=== PATIENT | male | born 1940 | race Hispanic/Latino ===

== ENCOUNTER 2017-11-08 17:27 | Inpatient (IN) | payer OTHER ==
[~2017-11-08] VITALS: Ht 165.1 cm; Wt 74.3 kg
[~2017-11-08 17:27] MED LIST: BENA10TA3 PO; CIPR-245 PO; PREG50 PO
[2017-11-08 17:52] LABS: BASOPHILS % (AUTO) 0.4 % (0.0-5.0); EOSINOPHILS % (AUTO) 0.1 % (0.0-8.0); HEMATOCRIT 34.6 % (42-54); LYMPHOCYTES % (AUTO) 6.2 % (21.0-51.0); MEAN CORPUSCULAR HEMOGLOBIN 32.9 pg (27.0-33.0); MEAN CORPUSCULAR HGB CONC 36.1 g/dL (32.0-36.0); MEAN CORPUSCULAR VOLUME 90.9 fL (79-99); MONOCYTES % (AUTO) 6.8 % (3.0-13.0); NEUTROPHILS % (AUTO) 86.5 % (40.0-77.0); NUCLEATED RED BLOOD CELLS 0.2 % (0.0-0.19); PLATELET COUNT (AUTO) 223 K/uL (130-400); RED BLOOD CELL COUNT(AUTO) 3.81 MIL/uL (4.50-6.20); RED CELL DISTRIBUTION WIDTH 13.5 % (11.0-15.5); WHITE BLOOD COUNT (AUTO) 9.8 K/uL (4.8-10.8)
[2017-11-08 18:05] LABS: ALBUMIN 2.6 g/dL (3.5-5.0); BILIRUBIN,TOTAL 1.4 mg/dL (0.2-1.0); CREATININE 1.2 mg/dL (0.5-1.5); TOTAL PROTEIN, SERUM 6.3 g/dL (6.0-8.3)
[2017-11-08 18:09] LABS: POTASSIUM 2.5 mmol/L (3.5-5.1)
[2017-11-08] MEDS ORDERED: SODIUM CHLORIDE 0.9% 1000ML 1,000 ML IV ONE (18:18)
[2017-11-08] MEDS ORDERED: POTASSIUM BICARB/CIT AC 25 MEQ TABLET.EFF ONE (18:32)
[2017-11-08] MEDS ORDERED: POTASSIUM CHLORIDE 20 MEQ ERTAB PO PRN ×2 (20:00→22:30)
[2017-11-08] MEDS ORDERED: DEXTROSE 5 %-0.45 % NACL 1,000 ML IV SCH (20:00)
[2017-11-08] MEDS ORDERED: POTASSIUM CHLORIDE 20MEQ/100ML 100 ML IV PRN (20:00)
[2017-11-08] MEDS ORDERED: LIDOCAINE HCL-MPF 1% 2ML VIAL IJ PRN (20:00)
[2017-11-08 20:10] VITALS: BP 121/58
[2017-11-08] MEDS ORDERED: POTASSIUM CHLORIDE 10% ELIXIR 20 MEQ/15 ML UDCUP PO PRN (22:30)
[2017-11-08] MEDS ORDERED: HYDRALAZINE HCL 20 MG/ML VIAL IV PRN (22:30)
[2017-11-08] MEDS ORDERED: ONDANSETRON HCL 4 MG/2 ML VIAL IV PRN (22:30)
[2017-11-08] MEDS ORDERED: ACETAMINOPHEN 325 MG TAB PO PRN ×2 (22:30)
[2017-11-08] MEDS ORDERED: DEXTROSE 5%-WATER 1,000 ML IV SCH (22:45)
[2017-11-08] MEDS ORDERED: DEXTROSE 5%-WATER 1,000 ML IV ONE (22:48)
[2017-11-08 22:54] LABS: APPEARANCE,URINE Clear (CLEAR); BILIRUBIN,URINE Negative (NEGATIVE); COLOR,URINE Dark Yellow (YELLOW); GLUCOSE, URINE (UA) Negative (NEGATIVE); KETONES,URINE Trace mg/dL (NEGATIVE); LEUKOCYTE ESTERASE ,URINE Trace (NEGATIVE); NITRATE,URINE Negative (NEGATIVE); OCCULT BLOOD,URINE Negative (NEGATIVE); PH,URINE 5.5 (5.0-8.0); PROTEIN,URINE Trace (NEGATIVE)
[2017-11-08 23:08] LABS: BACTERIA,URINE Rare /HPF (None Seen); RBC,URINE None Seen /HPF (0-1)
[2017-11-09] VITALS (7 sets, daily range): BP systolic 113–135; BP diastolic 56–70
[2017-11-09 00:35] LABS: POTASSIUM 2.9 mmol/L (3.5-5.1)
[2017-11-09 00:45] LABS: CREATINE KINASE MB 1.1 ng/mL (0.5-3.6); TROPONIN I 0.07 ng/mL (0.00-0.06)
[2017-11-09] MEDS: LIDOCAINE HCL-MPF 1% 2ML VIAL IVP PRN ×3 (01:36→17:28)
[2017-11-09] MEDS: POTASSIUM CHLORIDE 20MEQ/100ML 100 ML IV PRN ×4 (01:36→17:28)
[2017-11-09] MEDS ORDERED: MEGE400O20 PO (05:39)
[2017-11-09] MEDS ORDERED: TAMS0.4C32 PO (05:39)
[2017-11-09 06:27] LABS: HEMATOCRIT 32.2 % (42-54); MEAN CORPUSCULAR HEMOGLOBIN 32.4 pg (27.0-33.0); MEAN CORPUSCULAR HGB CONC 35.5 g/dL (32.0-36.0); MEAN CORPUSCULAR VOLUME 91.3 fL (79-99); NUCLEATED RED BLOOD CELLS 0.1 % (0.0-0.19); PLATELET COUNT (AUTO) 190 K/uL (130-400); RED BLOOD CELL COUNT(AUTO) 3.52 MIL/uL (4.50-6.20); RED CELL DISTRIBUTION WIDTH 13.7 % (11.0-15.5); WHITE BLOOD COUNT (AUTO) 8.3 K/uL (4.8-10.8)
[2017-11-09 06:49] LABS: CREATINE KINASE MB 0.8 ng/mL (0.5-3.6); CREATININE 1.1 mg/dL (0.5-1.5); TROPONIN I 0.06 ng/mL (0.00-0.06)
[2017-11-09] MEDS: TAMSULOSIN HCL 0.4 MG CAP.ER.24H PO SCH (09:56)
[2017-11-09] MEDS: FAMOTIDINE 20MG TAB 20 MG TAB PO SCH ×2 (09:56→21:27)
[2017-11-09] MEDS: PREGABALIN 25 MG CAP PO SCH ×2 (09:58→21:27)
[2017-11-09] MEDS: MEGESTROL 400 MG/10 ML UDCUP PO SCH (09:59)
[2017-11-09] MEDS: ENOXAPARIN SODIUM 40 MG/0.4 ML SYRINGE SQ SCH (10:00)
[2017-11-10] VITALS (7 sets, daily range): BP systolic 115–143; BP diastolic 57–72
[2017-11-10 06:13] LABS: HEMATOCRIT 33.1 % (42-54); MEAN CORPUSCULAR HEMOGLOBIN 33.6 pg (27.0-33.0); MEAN CORPUSCULAR HGB CONC 36.4 g/dL (32.0-36.0); MEAN CORPUSCULAR VOLUME 92.3 fL (79-99); NUCLEATED RED BLOOD CELLS 0.2 % (0.0-0.19); PLATELET COUNT (AUTO) 237 K/uL (130-400); RED BLOOD CELL COUNT(AUTO) 3.59 MIL/uL (4.50-6.20); RED CELL DISTRIBUTION WIDTH 13.9 % (11.0-15.5); WHITE BLOOD COUNT (AUTO) 9.4 K/uL (4.8-10.8)
[2017-11-10 06:26] LABS: CREATININE 1.3 mg/dL (0.5-1.5); MAGNESIUM 1.8 mg/dL (1.80-2.40); PHOSPHORUS 2.9 mg/dL (2.5-4.9)
[2017-11-10] MEDS ORDERED: CEFTRIAXONE 1GM/D5W 50ML 50 ML IV SCH (08:15)
[2017-11-10] MEDS ORDERED: CEFTRIAXONE SODIUM 1 GM IVP SCH (08:30)
[2017-11-10] MEDS: FAMOTIDINE 20MG TAB 20 MG TAB PO SCH ×2 (09:45→21:00)
[2017-11-10] MEDS: TAMSULOSIN HCL 0.4 MG CAP.ER.24H PO SCH (09:45)
[2017-11-10] MEDS: MEGESTROL 400 MG/10 ML UDCUP PO SCH (09:47)
[2017-11-10] MEDS: ENOXAPARIN SODIUM 40 MG/0.4 ML SYRINGE SQ SCH (09:50)
[2017-11-10] MEDS: PREGABALIN 25 MG CAP PO SCH ×2 (09:51→21:00)
[2017-11-10] MEDS: DEXTROSE 5%-LACTATED RINGERS 1,000 ML IV SCH (09:54)
[2017-11-10] MEDS: IPRATROPIUM/ALBUTEROL SULFATE 3 ML SOLUTION IH SCH ×3 (11:44→23:50)
[2017-11-10] MEDS ORDERED: MEROPENEM 1GM IVPB PREMIXED 1 GM IV SCH (12:30)
[2017-11-10] MEDS ORDERED: PAMIDRONATE DISODIUM 90MG VIAL 90 MG in SODIUM CHLORIDE 0.9% 1000ML 1,000 ML IV SCH (12:30)
[2017-11-10] MEDS ORDERED: MEROPENEM 1 GM VIAL IVP SCH (12:45)
[2017-11-10 13:57] LABS: ABG BASE EXCESS 6.1 mmol/L (-2.0-3.0); ABG HCO3 28.7 mmol/L (21.0-28.0); ABG OXYGEN SATURATION 90.9 % (95.0-99.0); ABG PCO2 34 mmHg (35-48)
[2017-11-10] MEDS: ACETAMINOPHEN 650 MG SUPPOSITORY RC PRN ×2 (16:10→21:32)
[2017-11-10 17:11] LABS: ABG BASE EXCESS 2.8 mmol/L (-2.0-3.0); ABG HCO3 24.4 mmol/L (21.0-28.0); ABG OXYGEN SATURATION 95.7 % (95.0-99.0); ABG PCO2 29 mmHg (35-48)
[2017-11-10] MEDS ORDERED: ASPIRIN 300 MG SUPPOSITORY PR SCH (19:30)
[2017-11-10] MEDS: MEROPENEM 1 GM VIAL IVP SCH (22:43)
[2017-11-11 03:39] VITALS: BP 123/60
[2017-11-11] MEDS: DEXTROSE 5%-LACTATED RINGERS 1,000 ML IV SCH ×2 (04:05→13:38)
[2017-11-11 04:06] LABS: HEMATOCRIT 31.8 % (42-54); MEAN CORPUSCULAR HEMOGLOBIN 32.7 pg (27.0-33.0); MEAN CORPUSCULAR HGB CONC 35.2 g/dL (32.0-36.0); NUCLEATED RED BLOOD CELLS 0.4 % (0.0-0.19); PLATELET COUNT (AUTO) 189 K/uL (130-400); RED BLOOD CELL COUNT(AUTO) 3.42 MIL/uL (4.50-6.20); RED CELL DISTRIBUTION WIDTH 14.1 % (11.0-15.5); WHITE BLOOD COUNT (AUTO) 4.7 K/uL (4.8-10.8)
[2017-11-11 04:16] LABS: ABG BASE EXCESS 7.2 mmol/L (-2.0-3.0); ABG OXYGEN SATURATION 96.6 % (95.0-99.0); ABG PCO2 36 mmHg (35-48)
[2017-11-11 04:17] LABS: ALBUMIN 2.1 g/dL (3.5-5.0); BILIRUBIN,TOTAL 1.5 mg/dL (0.2-1.0); CREATININE 1.5 mg/dL (0.5-1.5); POTASSIUM 3.8 mmol/L (3.5-5.1); TOTAL PROTEIN, SERUM 5.9 g/dL (6.0-8.3)
[2017-11-11] MEDS: IPRATROPIUM/ALBUTEROL SULFATE 3 ML SOLUTION IH SCH ×3 (06:12→18:14)
[2017-11-11] MEDS: MEROPENEM 1 GM VIAL IVP SCH ×3 (06:28→22:07)
[2017-11-11 07:31] VITALS: BP 148/64
[2017-11-11] MEDS: TAMSULOSIN HCL 0.4 MG CAP.ER.24H PO SCH (09:00)
[2017-11-11] MEDS: PREGABALIN 25 MG CAP PO SCH ×2 (09:00→21:00)
[2017-11-11] MEDS: MEGESTROL 400 MG/10 ML UDCUP PO SCH (09:00)
[2017-11-11] MEDS: FAMOTIDINE 20MG TAB 20 MG TAB PO SCH ×2 (09:00→21:00)
[2017-11-11 11:21] VITALS: BP 119/75
[2017-11-11] MEDS: ACETAMINOPHEN 650 MG SUPPOSITORY RC PRN (14:24)
[2017-11-11 16:16] VITALS: BP 116/63
[2017-11-11 19:01] VITALS: BP 121/62
[2017-11-11 23:17] VITALS: BP 117/60
[2017-11-12] MEDS: DEXTROSE 5%-LACTATED RINGERS 1,000 ML IV SCH (00:44)
[2017-11-12] MEDS: IPRATROPIUM/ALBUTEROL SULFATE 3 ML SOLUTION IH SCH ×4 (00:50→20:26)
[2017-11-12 03:33] VITALS: BP 120/61
[2017-11-12] MEDS: ACETAMINOPHEN 650 MG SUPPOSITORY RC PRN (04:09)
[2017-11-12 04:22] LABS: HEMATOCRIT 31.9 % (42-54); MEAN CORPUSCULAR HEMOGLOBIN 32.1 pg (27.0-33.0); MEAN CORPUSCULAR HGB CONC 34.2 g/dL (32.0-36.0); MEAN CORPUSCULAR VOLUME 93.9 fL (79-99); NUCLEATED RED BLOOD CELLS 0.1 % (0.0-0.19); PLATELET COUNT (AUTO) 198 K/uL (130-400); RED CELL DISTRIBUTION WIDTH 14.5 % (11.0-15.5); WHITE BLOOD COUNT (AUTO) 5.8 K/uL (4.8-10.8)
[2017-11-12 04:34] LABS: CREATININE 1.6 mg/dL (0.5-1.5); POTASSIUM 3.5 mmol/L (3.5-5.1)
[2017-11-12 04:55] VITALS: BP 113/66
[2017-11-12] MEDS: MEROPENEM 1 GM VIAL IVP SCH ×3 (06:53→21:43)
[2017-11-12 07:30] VITALS: BP 111/62
[2017-11-12] MEDS ORDERED: VANCOMYCIN PROTOCOL PER PHARMACY IV PRN (08:30)
[2017-11-12] MEDS: MEGESTROL 400 MG/10 ML UDCUP PO SCH (09:00)
[2017-11-12] MEDS ORDERED: FAMOTIDINE/PF 20 MG/2 ML VIAL IV SCH (09:00)
[2017-11-12] MEDS: TAMSULOSIN HCL 0.4 MG CAP.ER.24H PO SCH (09:00)
[2017-11-12] MEDS: PREGABALIN 25 MG CAP PO SCH ×2 (09:00→21:00)
[2017-11-12 11:00] VITALS: BP 99/54
[2017-11-12] MEDS: DEXTROSE 5%-WATER 1,000 ML IV SCH (11:05)
[2017-11-12] MEDS ORDERED: VANCOMYCIN 1.25 GM in SODIUM CHLORIDE 0.9% 250 ML IV ONE (14:00)
[2017-11-12 16:00] VITALS: BP 117/58
[2017-11-12] MEDS: KETOROLAC TROMETHAMINE 15MG/ML IV PRN (17:58)
[2017-11-12] MEDS: POTASSIUM CHLORIDE 20MEQ/100ML 100 ML IV PRN (17:59)
[2017-11-12] MEDS: LIDOCAINE HCL-MPF 1% 2ML VIAL IVP PRN (17:59)
[2017-11-12 20:00] VITALS: BP 109/64
[2017-11-13] VITALS (8 sets, daily range): BP systolic 80–119; BP diastolic 47–92
[2017-11-13] MEDS: IPRATROPIUM/ALBUTEROL SULFATE 3 ML SOLUTION IH SCH ×4 (00:29→18:52)
[2017-11-13] MEDS: VANCOMYCIN 500MG+NS 100ML 100 ML IV SCH ×2 (02:46→15:12)
[2017-11-13 05:12] LABS: HEMATOCRIT 30.4 % (42-54); MEAN CORPUSCULAR HEMOGLOBIN 32.4 pg (27.0-33.0); MEAN CORPUSCULAR HGB CONC 34.3 g/dL (32.0-36.0); MEAN CORPUSCULAR VOLUME 94.3 fL (79-99); NUCLEATED RED BLOOD CELLS 0.5 % (0.0-0.19); PLATELET COUNT (AUTO) 171 K/uL (130-400); RED BLOOD CELL COUNT(AUTO) 3.22 MIL/uL (4.50-6.20); WHITE BLOOD COUNT (AUTO) 6.2 K/uL (4.8-10.8)
[2017-11-13 05:35] LABS: CREATININE 1.6 mg/dL (0.5-1.5); POTASSIUM 3.5 mmol/L (3.5-5.1)
[2017-11-13] MEDS: TAMSULOSIN HCL 0.4 MG CAP.ER.24H PO SCH (06:56)
[2017-11-13] MEDS: MEGESTROL 400 MG/10 ML UDCUP PO SCH (06:57)
[2017-11-13] MEDS: PREGABALIN 25 MG CAP PO SCH ×2 (06:57→20:38)
[2017-11-13] MEDS: MEROPENEM 1 GM VIAL IVP SCH ×3 (07:12→21:19)
[2017-11-13] MEDS: DEXTROSE 5%-WATER 1,000 ML IV SCH ×2 (07:12→15:53)
[2017-11-13] MEDS: FAMOTIDINE/PF 20 MG/2 ML VIAL IV SCH (08:44)
[2017-11-13] MEDS: KETOROLAC TROMETHAMINE 15MG/ML IV PRN (12:16)
[2017-11-13 15:37] LABS: APPEARANCE,URINE Cloudy (CLEAR); BILIRUBIN,URINE Small (NEGATIVE); COLOR,URINE Dark Yellow (YELLOW); GLUCOSE, URINE (UA) Negative (NEGATIVE); KETONES,URINE Trace mg/dL (NEGATIVE); LEUKOCYTE ESTERASE ,URINE Small (NEGATIVE); NITRATE,URINE Negative (NEGATIVE); OCCULT BLOOD,URINE Large (NEGATIVE); PROTEIN,URINE POS 2+ (NEGATIVE)
[2017-11-13 15:50] LABS: BACTERIA,URINE Rare /HPF (None Seen); RBC,URINE Full Field /HPF (0-1); SQUAMOUS EPITHELIAL CELL,UR 0-2 /LPF (0-2)
[2017-11-13] MEDS ORDERED: SODIUM CHLORIDE 0.9% 1000ML 1,000 ML IV ONE ×2 (16:45→17:03)
[2017-11-13] MEDS: INSULIN HUMULIN R 100 UNIT/ML 3ML SQ SCH (20:38)
[2017-11-14] VITALS (21 sets, daily range): BP systolic 88–130; BP diastolic 42–84
[2017-11-14] MEDS: IPRATROPIUM/ALBUTEROL SULFATE 3 ML SOLUTION IH SCH ×5 (00:12→19:14)
[2017-11-14] MEDS: DEXTROSE 5%-WATER 1,000 ML IV SCH ×3 (00:20→21:27)
[2017-11-14] MEDS: VANCOMYCIN 500MG+NS 100ML 100 ML IV SCH ×2 (02:10→13:17)
[2017-11-14 04:09] LABS: HEMATOCRIT 29.3 % (42-54); MEAN CORPUSCULAR HEMOGLOBIN 31.9 pg (27.0-33.0); MEAN CORPUSCULAR VOLUME 93.9 fL (79-99); NUCLEATED RED BLOOD CELLS 0.3 % (0.0-0.19); PLATELET COUNT (AUTO) 151 K/uL (130-400); RED BLOOD CELL COUNT(AUTO) 3.12 MIL/uL (4.50-6.20); RED CELL DISTRIBUTION WIDTH 14.1 % (11.0-15.5); WHITE BLOOD COUNT (AUTO) 7.4 K/uL (4.8-10.8)
[2017-11-14 04:17] LABS: INR 1.02 (0.85-1.15); PARTIAL THROMBOPLASTIN TIME 23.8 SEC (26.3-35.5); PROTHROMBIN TIME 10.7 SEC (9.6-11.6)
[2017-11-14 04:20] LABS: CREATININE 1.7 mg/dL (0.5-1.5); POTASSIUM 3.4 mmol/L (3.5-5.1)
[2017-11-14] MEDS: MEROPENEM 1 GM VIAL IVP SCH ×3 (05:13→21:26)
[2017-11-14] MEDS: POTASSIUM CHLORIDE 20MEQ/100ML 100 ML IV PRN (05:44)
[2017-11-14] MEDS: LIDOCAINE HCL-MPF 1% 2ML VIAL IVP PRN (05:44)
[2017-11-14] MEDS: INSULIN HUMULIN R 100 UNIT/ML 3ML SQ SCH ×4 (06:12→21:00)
[2017-11-14] MEDS: FAMOTIDINE/PF 20 MG/2 ML VIAL IV SCH (09:00)
[2017-11-14] MEDS: MEGESTROL 400 MG/10 ML UDCUP PO SCH (09:00)
[2017-11-14] MEDS: TAMSULOSIN HCL 0.4 MG CAP.ER.24H PO SCH (09:00)
[2017-11-14] MEDS: PREGABALIN 25 MG CAP PO SCH ×2 (09:00→21:10)
[2017-11-14] MEDS ORDERED: PROPOFOL 10 MG/ML 20ML VIAL IV ONE ×2 (10:40)
[2017-11-14] MEDS: KETOROLAC TROMETHAMINE 15MG/ML IV PRN (17:16)
[2017-11-14] MEDS: VANCOMYCIN 1GM+NS 250ML 250 ML IV SCH (18:59)
[2017-11-15] MEDS: IPRATROPIUM/ALBUTEROL SULFATE 3 ML SOLUTION IH SCH ×4 (00:02→23:08)
[2017-11-15 03:53] VITALS: BP 119/66
[2017-11-15 04:27] LABS: HEMATOCRIT 26.5 % (42-54); MEAN CORPUSCULAR HEMOGLOBIN 32.9 pg (27.0-33.0); MEAN CORPUSCULAR HGB CONC 35.2 g/dL (32.0-36.0); MEAN CORPUSCULAR VOLUME 93.2 fL (79-99); NUCLEATED RED BLOOD CELLS 0.3 % (0.0-0.19); PLATELET COUNT (AUTO) 129 K/uL (130-400); RED BLOOD CELL COUNT(AUTO) 2.84 MIL/uL (4.50-6.20); RED CELL DISTRIBUTION WIDTH 14.3 % (11.0-15.5); WHITE BLOOD COUNT (AUTO) 5.5 K/uL (4.8-10.8)
[2017-11-15 04:53] LABS: CREATININE 1.4 mg/dL (0.5-1.5); POTASSIUM 3.4 mmol/L (3.5-5.1)
[2017-11-15] MEDS: MEROPENEM 1 GM VIAL IVP SCH ×3 (06:35→21:14)
[2017-11-15] MEDS: DEXTROSE 5%-WATER 1,000 ML IV SCH ×2 (06:35→16:48)
[2017-11-15] MEDS: INSULIN HUMULIN R 100 UNIT/ML 3ML SQ SCH ×3 (06:36→20:33)
[2017-11-15 08:00] VITALS: BP 148/71
[2017-11-15] MEDS: TAMSULOSIN HCL 0.4 MG CAP.ER.24H PO SCH (09:00)
[2017-11-15] MEDS: FAMOTIDINE/PF 20 MG/2 ML VIAL IV SCH (09:00)
[2017-11-15] MEDS: MEGESTROL 400 MG/10 ML UDCUP PO SCH (09:00)
[2017-11-15] MEDS: PREGABALIN 25 MG CAP PO SCH ×2 (09:00→20:31)
[2017-11-15] MEDS ORDERED: ENOXAPARIN SODIUM 40 MG/0.4 ML SYRINGE SQ ONE (14:53)
[2017-11-15] MEDS: ENOXAPARIN SODIUM 40 MG/0.4 ML SYRINGE SQ SCH (14:55)
[2017-11-15] MEDS: POTASSIUM CHLORIDE 10% ELIXIR 20 MEQ/15 ML UDCUP PO PRN ×2 (16:19→20:32)
[2017-11-15] MEDS: KETOROLAC TROMETHAMINE 15MG/ML IV PRN (16:47)
[2017-11-15] MEDS: VANCOMYCIN 1GM+NS 250ML 250 ML IV SCH (16:47)
[2017-11-15 19:00] VITALS: BP 114/55
[2017-11-15 23:56] VITALS: BP 116/51
[2017-11-16] MEDS: DEXTROSE 5%-WATER 1,000 ML IV SCH ×3 (02:20→23:01)
[2017-11-16 04:00] VITALS: BP 122/62
[2017-11-16] MEDS: MEROPENEM 1 GM VIAL IVP SCH ×3 (05:27→22:59)
[2017-11-16 05:51] LABS: MEAN CORPUSCULAR HEMOGLOBIN 33.7 pg (27.0-33.0); MEAN CORPUSCULAR HGB CONC 35.9 g/dL (32.0-36.0); MEAN CORPUSCULAR VOLUME 93.8 fL (79-99); NUCLEATED RED BLOOD CELLS 0.3 % (0.0-0.19); PLATELET COUNT (AUTO) 135 K/uL (130-400); RED BLOOD CELL COUNT(AUTO) 2.88 MIL/uL (4.50-6.20); RED CELL DISTRIBUTION WIDTH 14.3 % (11.0-15.5); WHITE BLOOD COUNT (AUTO) 5.5 K/uL (4.8-10.8)
[2017-11-16 05:59] LABS: BAND NEUTROPHILS % (MANUAL) 8 % (0-2); LYMPHOCYTES % (MANUAL) 17 % (22-44); MAN.DIFF COMMENT-IMPRESSION MANUAL DIFFERENTIAL; MONOCYTES % (MANUAL) 5 % (2-9); PLATELET MORPHOLOGY COMMENT SLIGHTLY DECREASED; SEGMENTED NEUTROPHILS % 70 % (40-70)
[2017-11-16 06:09] LABS: ALBUMIN 1.8 g/dL (3.5-5.0); BILIRUBIN,TOTAL 0.7 mg/dL (0.2-1.0); CREATININE 1.4 mg/dL (0.5-1.5); MAGNESIUM 1.7 mg/dL (1.80-2.40); POTASSIUM 3.7 mmol/L (3.5-5.1); TOTAL PROTEIN, SERUM 5.1 g/dL (6.0-8.3)
[2017-11-16] MEDS: INSULIN HUMULIN R 100 UNIT/ML 3ML SQ SCH ×4 (06:31→20:50)
[2017-11-16] MEDS: IPRATROPIUM/ALBUTEROL SULFATE 3 ML SOLUTION IH SCH ×4 (07:04→23:00)
[2017-11-16 08:00] VITALS: BP 122/60
[2017-11-16] MEDS: MEGESTROL 400 MG/10 ML UDCUP PO SCH (09:00)
[2017-11-16] MEDS: FAMOTIDINE/PF 20 MG/2 ML VIAL IV SCH (10:08)
[2017-11-16] MEDS: TAMSULOSIN HCL 0.4 MG CAP.ER.24H PO SCH (10:08)
[2017-11-16] MEDS: PREGABALIN 25 MG CAP PO SCH ×2 (10:08→22:58)
[2017-11-16 12:00] VITALS: BP 134/72
[2017-11-16 16:00] VITALS: BP 136/70
[2017-11-16] MEDS ORDERED: DIATR MEGLU/DIATRIZOATE SODIUM 30 ML BOTTLE PO ONE (16:24)
[2017-11-16] MEDS: VANCOMYCIN 1GM+NS 250ML 250 ML IV SCH (18:00)
[2017-11-16 19:00] VITALS: BP 132/72
[2017-11-16] MEDS: VANCOMYCIN 0.75 GM in N.S. 250 ML IV SCH (23:02)
[2017-11-17] VITALS (7 sets, daily range): BP systolic 104–136; BP diastolic 60–68
[2017-11-17] MEDS: MEROPENEM 1 GM VIAL IVP SCH ×3 (06:04→22:20)
[2017-11-17] MEDS: INSULIN HUMULIN R 100 UNIT/ML 3ML SQ SCH ×3 (06:35→21:00)
[2017-11-17] MEDS: IPRATROPIUM/ALBUTEROL SULFATE 3 ML SOLUTION IH SCH ×4 (06:55→23:38)
[2017-11-17] MEDS: ENOXAPARIN SODIUM 40 MG/0.4 ML SYRINGE SQ SCH (09:00)
[2017-11-17] MEDS: FUROSEMIDE 10 MG/ML 2ML VIAL IV SCH ×2 (09:25→22:08)
[2017-11-17] MEDS: PREGABALIN 25 MG CAP PO SCH ×2 (11:42→22:10)
[2017-11-17] MEDS: MEGESTROL 400 MG/10 ML UDCUP PO SCH (11:42)
[2017-11-17] MEDS: FAMOTIDINE/PF 20 MG/2 ML VIAL IV SCH (11:42)
[2017-11-17] MEDS: TAMSULOSIN HCL 0.4 MG CAP.ER.24H PO SCH (11:42)
[2017-11-17] MEDS ORDERED: COMPOUND IV REFRIGERATED 1 EACH IVSOLN MISC PRN (12:30)
[2017-11-17] MEDS: VANCOMYCIN 0.75 GM in N.S. 250 ML IV SCH (22:40)
[2017-11-18 03:57] VITALS: BP 102/54
[2017-11-18 04:10] LABS: MEAN CORPUSCULAR HEMOGLOBIN 33.4 pg (27.0-33.0); MEAN CORPUSCULAR HGB CONC 36.1 g/dL (32.0-36.0); MEAN CORPUSCULAR VOLUME 92.6 fL (79-99); NUCLEATED RED BLOOD CELLS 0.2 % (0.0-0.19); PLATELET COUNT (AUTO) 140 K/uL (130-400); RED BLOOD CELL COUNT(AUTO) 2.71 MIL/uL (4.50-6.20); RED CELL DISTRIBUTION WIDTH 14.4 % (11.0-15.5); WHITE BLOOD COUNT (AUTO) 6.8 K/uL (4.8-10.8)
[2017-11-18 04:24] LABS: CREATININE 1.8 mg/dL (0.5-1.5); MAGNESIUM 1.9 mg/dL (1.80-2.40); PHOSPHORUS 3.9 mg/dL (2.5-4.9); POTASSIUM 4.3 mmol/L (3.5-5.1)
[2017-11-18] MEDS: MEROPENEM 1 GM VIAL IVP SCH (05:52)
[2017-11-18] MEDS: INSULIN HUMULIN R 100 UNIT/ML 3ML SQ SCH ×4 (06:00→18:50)
[2017-11-18] MEDS: IPRATROPIUM/ALBUTEROL SULFATE 3 ML SOLUTION IH SCH ×4 (07:00→23:46)
[2017-11-18 08:00] VITALS: BP 109/55
[2017-11-18] MEDS: TAMSULOSIN HCL 0.4 MG CAP.ER.24H PO SCH (09:36)
[2017-11-18] MEDS: MEGESTROL 400 MG/10 ML UDCUP PO SCH (09:36)
[2017-11-18] MEDS: PREGABALIN 25 MG CAP PO SCH ×2 (09:36→21:10)
[2017-11-18] MEDS: FAMOTIDINE/PF 20 MG/2 ML VIAL IV SCH (09:36)
[2017-11-18 11:54] VITALS: BP 122/61
[2017-11-18] MEDS: POLYETHYLENE GLYCOL 3350 17 GM POWD.PACK PO SCH (12:54)
[2017-11-18] MEDS: DOXYCYCLINE HYCLATE 100 MG TABLET PO SCH ×2 (12:54→21:10)
[2017-11-18 16:00] VITALS: BP 126/60
[2017-11-18 20:00] VITALS: BP 90/49
[2017-11-19] VITALS (8 sets, daily range): BP systolic 87–100; BP diastolic 44–56
[2017-11-19] MEDS: IPRATROPIUM/ALBUTEROL SULFATE 3 ML SOLUTION IH SCH ×3 (07:12→17:27)
[2017-11-19 09:24] LABS: CREATININE 2.2 mg/dL (0.5-1.5); POTASSIUM 4.5 mmol/L (3.5-5.1)
[2017-11-19] MEDS: POLYETHYLENE GLYCOL 3350 17 GM POWD.PACK PO SCH (09:30)
[2017-11-19] MEDS: TAMSULOSIN HCL 0.4 MG CAP.ER.24H PO SCH (09:31)
[2017-11-19] MEDS: PREGABALIN 25 MG CAP PO SCH ×2 (09:31→21:57)
[2017-11-19] MEDS: DOXYCYCLINE HYCLATE 100 MG TABLET PO SCH ×2 (09:31→21:57)
[2017-11-19] MEDS: LEVOFLOXACIN 500 MG TABLET PO SCH (09:31)
[2017-11-19] MEDS: INSULIN HUMULIN R 100 UNIT/ML 3ML SQ SCH ×3 (12:47→19:18)
[2017-11-19] MEDS: SODIUM CHLORIDE 0.9% 1000ML 1,000 ML IV SCH (18:56)
[2017-11-20] MEDS: IPRATROPIUM/ALBUTEROL SULFATE 3 ML SOLUTION IH SCH ×5 (00:02→23:09)
[2017-11-20] MEDS: INSULIN HUMULIN R 100 UNIT/ML 3ML SQ SCH ×3 (00:57→12:29)
[2017-11-20 04:00] VITALS: BP 95/52
[2017-11-20 05:15] LABS: CREATININE 2.6 mg/dL (0.5-1.5); POTASSIUM 4.5 mmol/L (3.5-5.1)
[2017-11-20 07:20] VITALS: BP 114/58
[2017-11-20] MEDS ORDERED: LACTULOSE 20 GM/30 ML UDCUP PO PRN (09:00)
[2017-11-20] MEDS ORDERED: ONDANSETRON HCL 4 MG/2 ML VIAL IV PRN (09:00)
[2017-11-20] MEDS ORDERED: NITROGLYCERIN 0.4 MG SL TAB SL PRN (09:00)
[2017-11-20] MEDS ORDERED: ACETAMINOPHEN 325 MG TAB PO PRN ×2 (09:00)
[2017-11-20] MEDS ORDERED: MAG HYDROX/AL HYDROX/SIMETH ES 30 ML SUSP UDCUP PO PRN (09:00)
[2017-11-20] MEDS: TAMSULOSIN HCL 0.4 MG CAP.ER.24H PO SCH (09:00)
[2017-11-20] MEDS ORDERED: GUAIFENESIN-DM 200/20 MG 10 ML PO PRN (09:00)
[2017-11-20 10:02] LABS: APPEARANCE,URINE Cloudy (CLEAR); BILIRUBIN,URINE Small (NEGATIVE); COLOR,URINE Dark Yellow (YELLOW); GLUCOSE, URINE (UA) Negative (NEGATIVE); KETONES,URINE Negative (NEGATIVE); LEUKOCYTE ESTERASE ,URINE Trace (NEGATIVE); NITRATE,URINE Negative (NEGATIVE); OCCULT BLOOD,URINE Moderate (NEGATIVE); PROTEIN,URINE POS 2+ (NEGATIVE)
[2017-11-20 10:06] LABS: AMORPHOUS SEDIMENT,UR Moderate /LPF (None Seen); BACTERIA,URINE Rare /HPF (None Seen); RBC,URINE None Seen /HPF (0-1); SQUAMOUS EPITHELIAL CELL,UR Rare /LPF (0-2); WBC,URINE 0-1 /HPF (0-1)
[2017-11-20] MEDS: SODIUM CHLORIDE 0.9% 1000ML 1,000 ML IV SCH ×2 (10:06→22:02)
[2017-11-20] MEDS: PREGABALIN 25 MG CAP PO SCH ×2 (10:21→22:01)
[2017-11-20] MEDS: LEVOFLOXACIN 500 MG TABLET PO SCH (10:21)
[2017-11-20] MEDS: DOXYCYCLINE HYCLATE 100 MG TABLET PO SCH ×2 (10:22→22:01)
[2017-11-20] MEDS: POLYETHYLENE GLYCOL 3350 17 GM POWD.PACK PO SCH (10:22)
[2017-11-20] MEDS: ENOXAPARIN SODIUM 30 MG/0.3 ML SQ SCH (10:24)
[2017-11-20 11:48] VITALS: BP 100/55
[2017-11-20 15:36] VITALS: BP 103/59
[2017-11-20 20:00] VITALS: BP 95/47
[2017-11-21] VITALS (7 sets, daily range): BP systolic 95–110; BP diastolic 51–59
[2017-11-21] MEDS: INSULIN HUMULIN R 100 UNIT/ML 3ML SQ SCH ×3 (00:43→13:21)
[2017-11-21 04:36] LABS: CREATININE 2.8 mg/dL (0.5-1.5); POTASSIUM 4.3 mmol/L (3.5-5.1)
[2017-11-21] MEDS: ACETAMINOPHEN-CODEINE 300/30MG TAB PO PRN (04:39)
[2017-11-21] MEDS: IPRATROPIUM/ALBUTEROL SULFATE 3 ML SOLUTION IH SCH ×4 (06:43→23:27)
[2017-11-21] MEDS: PREGABALIN 25 MG CAP PO SCH ×2 (08:25→21:17)
[2017-11-21] MEDS: POLYETHYLENE GLYCOL 3350 17 GM POWD.PACK PO SCH (08:26)
[2017-11-21] MEDS: DOXYCYCLINE HYCLATE 100 MG TABLET PO SCH ×2 (08:26→21:17)
[2017-11-21] MEDS: LEVOFLOXACIN 500 MG TABLET PO SCH (08:26)
[2017-11-21] MEDS: ENOXAPARIN SODIUM 30 MG/0.3 ML SQ SCH (08:26)
[2017-11-21] MEDS: TAMSULOSIN HCL 0.4 MG CAP.ER.24H PO SCH (08:26)
[2017-11-21] MEDS ORDERED: MAGNESIUM CITRATE 296 ML SOLUTION PO PRN (09:45)
[2017-11-21] MEDS: ACETYLCYSTEINE 20% 200MG/ML 4ML VIAL IH SCH ×2 (18:47→23:27)
[2017-11-22] MEDS: INSULIN HUMULIN R 100 UNIT/ML 3ML SQ SCH ×6 (00:42→23:47)
[2017-11-22] MEDS: MORPHINE SULFATE 2 MG/ML 1ML SYG IV PRN ×3 (02:30→17:27)
[2017-11-22 03:34] VITALS: BP 97/41
[2017-11-22 04:54] LABS: CREATININE 3.1 mg/dL (0.5-1.5); POTASSIUM 4.4 mmol/L (3.5-5.1)
[2017-11-22 04:55] LABS: INR 0.98 (0.85-1.15); PARTIAL THROMBOPLASTIN TIME 32.9 SEC (26.3-35.5); PROTHROMBIN TIME 10.3 SEC (9.6-11.6)
[2017-11-22] MEDS: ACETYLCYSTEINE 20% 200MG/ML 4ML VIAL IH SCH (06:17)
[2017-11-22] MEDS: IPRATROPIUM/ALBUTEROL SULFATE 3 ML SOLUTION IH SCH ×4 (06:17→23:23)
[2017-11-22 07:00] VITALS: BP 111/62
[2017-11-22] MEDS ORDERED: SODIUM CHLORIDE 0.9% 1000ML 1,000 ML IV SCH (08:49)
[2017-11-22] MEDS: ENOXAPARIN SODIUM 30 MG/0.3 ML SQ SCH (09:00)
[2017-11-22] MEDS: TAMSULOSIN HCL 0.4 MG CAP.ER.24H PO SCH (09:00)
[2017-11-22] MEDS: POLYETHYLENE GLYCOL 3350 17 GM POWD.PACK PO SCH (09:00)
[2017-11-22] MEDS: PREGABALIN 25 MG CAP PO SCH ×2 (09:00→21:54)
[2017-11-22] MEDS ORDERED: HYDROMORPHONE HCL 0.5 MG/0.5 ML ML IVP PRN (09:30)
[2017-11-22] MEDS ORDERED: FUROSEMIDE 10 MG/ML 4ML VIAL IV SCH (10:00)
[2017-11-22] MEDS: DOXYCYCLINE 100MG+NS 250ML 250 ML IV SCH ×2 (10:17→21:54)
[2017-11-22] MEDS: LEVOFLOXACIN 250 MG/D5W 50ML 50 ML IV SCH (10:17)
[2017-11-22 11:00] VITALS: BP 97/54
[2017-11-22 16:00] VITALS: BP 109/55
[2017-11-22 19:34] VITALS: BP 93/52
[2017-11-22 23:44] VITALS: BP 95/53
[2017-11-23 03:44] VITALS: BP 96/61
[2017-11-23] MEDS: IPRATROPIUM/ALBUTEROL SULFATE 3 ML SOLUTION IH SCH ×3 (06:18→16:36)
[2017-11-23 06:26] LABS: HEMATOCRIT 23.7 % (42-54); MEAN CORPUSCULAR HEMOGLOBIN 32.3 pg (27.0-33.0); MEAN CORPUSCULAR HGB CONC 34.3 g/dL (32.0-36.0); MEAN CORPUSCULAR VOLUME 94.2 fL (79-99); NUCLEATED RED BLOOD CELLS 0.5 % (0.0-0.19); PLATELET COUNT (AUTO) 131 K/uL (130-400); RED BLOOD CELL COUNT(AUTO) 2.52 MIL/uL (4.50-6.20); RED CELL DISTRIBUTION WIDTH 15.6 % (11.0-15.5); WHITE BLOOD COUNT (AUTO) 3.8 K/uL (4.8-10.8)
[2017-11-23] MEDS: INSULIN HUMULIN R 100 UNIT/ML 3ML SQ SCH ×4 (06:28→21:32)
[2017-11-23 06:32] LABS: CREATININE 3.1 mg/dL (0.5-1.5)
[2017-11-23 08:00] VITALS: BP 102/57
[2017-11-23] MEDS ORDERED: MORPHINE SULFATE 4 MG/1ML SYG ONE ×2 (08:52→15:58)
[2017-11-23] MEDS: DOXYCYCLINE 100MG+NS 250ML 250 ML IV SCH ×2 (08:55→21:31)
[2017-11-23] MEDS: TAMSULOSIN HCL 0.4 MG CAP.ER.24H PO SCH (08:55)
[2017-11-23] MEDS: LEVOFLOXACIN 250 MG/D5W 50ML 50 ML IV SCH (08:55)
[2017-11-23] MEDS: PREGABALIN 25 MG CAP PO SCH ×2 (08:55→21:31)
[2017-11-23] MEDS: POLYETHYLENE GLYCOL 3350 17 GM POWD.PACK PO SCH (08:56)
[2017-11-23] MEDS: ENOXAPARIN SODIUM 30 MG/0.3 ML SQ SCH (08:56)
[2017-11-23 11:56] VITALS: BP 101/64
[2017-11-23 16:00] VITALS: BP 118/64
[2017-11-23 19:38] VITALS: BP 103/58
[2017-11-23 23:55] VITALS: BP 119/74
[2017-11-24] VITALS (15 sets, daily range): BP systolic 89–110; BP diastolic 47–70
[2017-11-24] MEDS: IPRATROPIUM/ALBUTEROL SULFATE 3 ML SOLUTION IH SCH ×5 (01:57→23:41)
[2017-11-24] MEDS: INSULIN HUMULIN R 100 UNIT/ML 3ML SQ SCH ×3 (06:09→18:04)
[2017-11-24 06:39] LABS: MEAN CORPUSCULAR HGB CONC 36.1 g/dL (32.0-36.0); MEAN CORPUSCULAR VOLUME 94.2 fL (79-99); NUCLEATED RED BLOOD CELLS 0.3 % (0.0-0.19); PLATELET COUNT (AUTO) 125 K/uL (130-400); RED BLOOD CELL COUNT(AUTO) 2.66 MIL/uL (4.50-6.20); RED CELL DISTRIBUTION WIDTH 15.9 % (11.0-15.5); WHITE BLOOD COUNT (AUTO) 4.3 K/uL (4.8-10.8)
[2017-11-24 06:48] LABS: CREATININE 3.1 mg/dL (0.5-1.5); POTASSIUM 4.3 mmol/L (3.5-5.1)
[2017-11-24] MEDS ORDERED: LIDOCAINE HCL 1% MDV 50ML VIAL ONE (07:50)
[2017-11-24] MEDS ORDERED: ISOVUE-300 100 ML VIAL IV ONE (07:50)
[2017-11-24] MEDS: POLYETHYLENE GLYCOL 3350 17 GM POWD.PACK PO SCH (09:00)
[2017-11-24] MEDS: ENOXAPARIN SODIUM 30 MG/0.3 ML SQ SCH (09:00)
[2017-11-24] MEDS: PREGABALIN 25 MG CAP PO SCH ×2 (10:16→20:23)
[2017-11-24] MEDS: LEVOFLOXACIN 250 MG/D5W 50ML 50 ML IV SCH (10:16)
[2017-11-24] MEDS: TAMSULOSIN HCL 0.4 MG CAP.ER.24H PO SCH (10:16)
[2017-11-24] MEDS: DOXYCYCLINE 100MG+NS 250ML 250 ML IV SCH ×2 (10:16→20:23)
[2017-11-24] MEDS: ACETAMINOPHEN-CODEINE 300/30MG TAB PO PRN (13:17)
[2017-11-24] MEDS ORDERED: MORPHINE SULFATE 4 MG/1ML SYG IVP PRN (15:15)
[2017-11-25] VITALS (7 sets, daily range): BP systolic 91–109; BP diastolic 45–67
[2017-11-25] MEDS: INSULIN HUMULIN R 100 UNIT/ML 3ML SQ SCH ×3 (00:43→17:51)
[2017-11-25] MEDS: ACETAMINOPHEN-CODEINE 300/30MG TAB PO PRN ×2 (01:14→09:34)
[2017-11-25 04:44] LABS: HEMATOCRIT 23.5 % (42-54); MEAN CORPUSCULAR HEMOGLOBIN 33.3 pg (27.0-33.0); MEAN CORPUSCULAR HGB CONC 35.2 g/dL (32.0-36.0); MEAN CORPUSCULAR VOLUME 94.6 fL (79-99); NUCLEATED RED BLOOD CELLS 1.2 % (0.0-0.19); PLATELET COUNT (AUTO) 144 K/uL (130-400); RED BLOOD CELL COUNT(AUTO) 2.49 MIL/uL (4.50-6.20); RED CELL DISTRIBUTION WIDTH 16.2 % (11.0-15.5); WHITE BLOOD COUNT (AUTO) 4.9 K/uL (4.8-10.8)
[2017-11-25] MEDS: IPRATROPIUM/ALBUTEROL SULFATE 3 ML SOLUTION IH SCH ×4 (06:34→23:26)
[2017-11-25] MEDS ORDERED: DEXTROSE 5%-WATER 1,000 ML IV SCH (08:29)
[2017-11-25] MEDS: TAMSULOSIN HCL 0.4 MG CAP.ER.24H PO SCH (09:03)
[2017-11-25] MEDS: DOXYCYCLINE 100MG+NS 250ML 250 ML IV SCH ×3 (09:03→21:34)
[2017-11-25] MEDS: PREGABALIN 25 MG CAP PO SCH ×2 (09:03→21:30)
[2017-11-25] MEDS: LEVOFLOXACIN 250 MG/D5W 50ML 50 ML IV SCH (09:03)
[2017-11-25] MEDS: POLYETHYLENE GLYCOL 3350 17 GM POWD.PACK PO SCH (09:04)
[2017-11-25] MEDS: ENOXAPARIN SODIUM 30 MG/0.3 ML SQ SCH (09:05)
[2017-11-25] MEDS: ACETYLCYSTEINE 20% 200MG/ML 4ML VIAL IH SCH ×3 (11:26→18:40)
[2017-11-25] MEDS: MIDODRINE HCL 5 MG TABLET PO SCH ×2 (14:40→21:29)
[2017-11-25] MEDS: SODIUM BICARBONATE 650 MG TAB PO SCH (21:30)
[2017-11-25] MEDS ORDERED: ACETYLCYSTEINE 20% 200MG/ML 4ML VIAL ONE (23:29)
[2017-11-26] VITALS (7 sets, daily range): BP systolic 71–108; BP diastolic 43–62
[2017-11-26] MEDS: INSULIN HUMULIN R 100 UNIT/ML 3ML SQ SCH ×4 (00:24→20:20)
[2017-11-26] MEDS: ACETAMINOPHEN-CODEINE 300/30MG TAB PO PRN (00:26)
[2017-11-26 04:17] LABS: HEMATOCRIT 24.4 % (42-54); MEAN CORPUSCULAR HGB CONC 33.8 g/dL (32.0-36.0); MEAN CORPUSCULAR VOLUME 94.9 fL (79-99); NUCLEATED RED BLOOD CELLS 0.3 % (0.0-0.19); PLATELET COUNT (AUTO) 140 K/uL (130-400); RED BLOOD CELL COUNT(AUTO) 2.57 MIL/uL (4.50-6.20); RED CELL DISTRIBUTION WIDTH 16.3 % (11.0-15.5); WHITE BLOOD COUNT (AUTO) 6.1 K/uL (4.8-10.8)
[2017-11-26 04:51] LABS: CREATININE 3.1 mg/dL (0.5-1.5); POTASSIUM 3.6 mmol/L (3.5-5.1)
[2017-11-26] MEDS: IPRATROPIUM/ALBUTEROL SULFATE 3 ML SOLUTION IH SCH (06:41)
[2017-11-26] MEDS: LEVOFLOXACIN 250 MG/D5W 50ML 50 ML IV SCH (10:06)
[2017-11-26] MEDS: PREGABALIN 25 MG CAP PO SCH ×2 (10:13→22:32)
[2017-11-26] MEDS: SODIUM BICARBONATE 650 MG TAB PO SCH ×2 (10:14→22:32)
[2017-11-26] MEDS: POLYETHYLENE GLYCOL 3350 17 GM POWD.PACK PO SCH (10:14)
[2017-11-26] MEDS: TAMSULOSIN HCL 0.4 MG CAP.ER.24H PO SCH (10:14)
[2017-11-26] MEDS: ENOXAPARIN SODIUM 30 MG/0.3 ML SQ SCH (10:14)
[2017-11-26] MEDS: DOXYCYCLINE 100MG+NS 250ML 250 ML IV SCH ×2 (10:15→22:32)
[2017-11-26] MEDS ORDERED: ACETYLCYSTEINE 20% 200MG/ML 4ML VIAL ONE (11:11)
[2017-11-26] MEDS: IPRATROPIUM 0.5 MG/2.5 ML INH IH SCH ×3 (11:19→23:24)
[2017-11-26] MEDS: ACETYLCYSTEINE 20% 200MG/ML 4ML VIAL IH SCH ×2 (11:21→18:54)
[2017-11-26] MEDS: TRYPSIN/BALSAM PERU/CASTOR OIL OINT 60GM TUBE TP SCH (11:45)
[2017-11-26] MEDS: MIDODRINE HCL 5 MG TABLET PO SCH ×2 (14:45→22:32)
[2017-11-27] VITALS (7 sets, daily range): BP systolic 88–110; BP diastolic 32–56
[2017-11-27] MEDS: TRYPSIN/BALSAM PERU/CASTOR OIL OINT 60GM TUBE TP SCH ×2 (00:25→09:00)
[2017-11-27] MEDS: INSULIN HUMULIN R 100 UNIT/ML 3ML SQ SCH ×3 (00:29→13:04)
[2017-11-27 05:56] LABS: CREATININE 3.2 mg/dL (0.5-1.5); POTASSIUM 3.5 mmol/L (3.5-5.1)
[2017-11-27] MEDS: IPRATROPIUM 0.5 MG/2.5 ML INH IH SCH ×4 (07:24→23:44)
[2017-11-27] MEDS: ACETYLCYSTEINE 20% 200MG/ML 4ML VIAL IH SCH ×3 (07:24→23:44)
[2017-11-27] MEDS: LEVOFLOXACIN 250 MG/D5W 50ML 50 ML IV SCH (09:58)
[2017-11-27] MEDS: SODIUM BICARBONATE 650 MG TAB PO SCH ×2 (09:58→22:28)
[2017-11-27] MEDS: DOXYCYCLINE 100MG+NS 250ML 250 ML IV SCH ×2 (09:58→22:28)
[2017-11-27] MEDS: POLYETHYLENE GLYCOL 3350 17 GM POWD.PACK PO SCH (09:58)
[2017-11-27] MEDS: MIDODRINE HCL 5 MG TABLET PO SCH ×3 (09:58→22:29)
[2017-11-27] MEDS: PREGABALIN 25 MG CAP PO SCH ×2 (09:58→21:00)
[2017-11-27] MEDS: TAMSULOSIN HCL 0.4 MG CAP.ER.24H PO SCH (09:58)
[2017-11-27] MEDS: ENOXAPARIN SODIUM 30 MG/0.3 ML SQ SCH (10:03)
[2017-11-27] MEDS: DEXTROSE 5%-WATER 1,000 ML IV SCH (10:05)
[2017-11-28] MEDS: DEXTROSE 5%-WATER 1,000 ML IV SCH (00:24)
[2017-11-28] MEDS: INSULIN HUMULIN R 100 UNIT/ML 3ML SQ SCH ×2 (00:29→06:42)
[2017-11-28] MEDS: TRYPSIN/BALSAM PERU/CASTOR OIL OINT 60GM TUBE TP SCH (00:30)
[2017-11-28 03:00] VITALS: BP_SYST 73; BP_SYST 79; BP_DIAS 37; BP_DIAS 38
[2017-11-28 04:44] VITALS: BP 98/50
[2017-11-28 05:21] LABS: CREATININE 3.3 mg/dL (0.5-1.5); POTASSIUM 3.5 mmol/L (3.5-5.1)
[2017-11-28 07:00] VITALS: BP 88/34
[2017-11-28] MEDS: IPRATROPIUM 0.5 MG/2.5 ML INH IH SCH ×2 (07:28→11:52)
[2017-11-28] MEDS: ACETYLCYSTEINE 20% 200MG/ML 4ML VIAL IH SCH (07:29)
[2017-11-28] MEDS ORDERED: SIMETHICONE 80 MG TAB.CHEW PO SCH (09:00)
== END 2017-11-28 19:15 | disposition expired | DRG 871 ==
LOC: EDH 17:27 → EDHIP 19:10 → OBSVTOIN 19:10 → 3BH 19:37 → 2DH 11-10 18:08 → 3CH 11-12 04:53
PROVIDERS: ADMIT Internal Medicine; ATTEND Internal Medicine
PROC: 0DH63UZ Insertion of Feeding Device into Stomach, Percutaneous Approach (ICD-10-PCS; 2017-11-14)
PROC: 0T9130Z Drainage of Left Kidney with Drainage Device, Percutaneous Approach (ICD-10-PCS; principal; 2017-11-24)
DX: A41.9 Sepsis, unspecified organism (principal); E43 Unspecified severe protein-calorie malnutrition; J69.0 Pneumonitis due to inhalation of food and vomit; J96.20 Acute and chronic respiratory failure, unspecified whether with hypoxia or hypercapnia; G93.40 Encephalopathy, unspecified; N17.9 Acute kidney failure, unspecified; E87.0 Hyperosmolality and hypernatremia; R13.10 Dysphagia, unspecified; N39.0 Urinary tract infection, site not specified; N13.1 Hydronephrosis with ureteral stricture, not elsewhere classified; C61 Malignant neoplasm of prostate; D64.9 Anemia, unspecified; E11.22 Type 2 diabetes mellitus with diabetic chronic kidney disease; E86.0 Dehydration; E83.52 Hypercalcemia; E87.5 Hyperkalemia; E87.6 Hypokalemia; E87.70 Fluid overload, unspecified; G89.4 Chronic pain syndrome; I12.9 Hypertensive chronic kidney disease with stage 1 through stage 4 chronic kidney disease, or unspecified chronic kidney disease; N18.9 Chronic kidney disease, unspecified; N40.0 Benign prostatic hyperplasia without lower urinary tract symptoms; R62.7 Adult failure to thrive; Z51.5 Encounter for palliative care; Z66 Do not resuscitate; Z85.46 Personal history of malignant neoplasm of prostate; Z85.51 Personal history of malignant neoplasm of bladder; Z93.1 Gastrostomy status; Z93.6 Other artificial openings of urinary tract status; Z68.27 Body mass index [BMI] 27.0-27.9, adult; R53.81 Other malaise; E87.8 Other disorders of electrolyte and fluid balance, not elsewhere classified; Z28.21 Immunization not carried out because of patient refusal
CPT/HCPCS: 10030; 31720; 36415; 36600; 50432; 70551; 71045; 74176; 76770; 80048; 80051; 80053; 80202; 81001; 82270; 82330; 82435; 82550; 82553; 82803; 82947; 82948; 83605; 83735; 83874; 84100; 84132; 84295; 84484; 85018; 85025; 85027; 85610; 85730; 87040; 87071; 87076; 87088; 87205; 92610; 93005; 93970; 94640; 94664; 94667; 94668; 97039; A4218; A4344; C1729; C1894; J0696; J1650; J1815; J1885; J1940; J1956; J2185; J2270; J2430; J2704; J3370; J3480; J3490; J7030; J7042; J7070; J7608; Q9963; Q9967